=== PATIENT | female | born 1960 | race Caucasian/White ===

== ENCOUNTER → 2016-05-26 | Outpatient (CLI) | payer OTHER ==
[~2016-05-26] MED LIST: IBUP80TA PO; LEVO50TA5 PO
--- NOTE | 2016-05-26 14:52 | REPMRS ---
Patient History The patient states she had a clinical breast exam in 04/2016. Patient is postmenopausal. Patient had tested negative for BRCA1 and negative for BRCA2. Family history of colorectal cancer in maternal grandfather at age 50 or over, breast cancer in sister at age 58, breast cancer in mother at age 50 or over, breast cancer in 2 maternal aunts at age 50 or over, breast cancer in maternal aunt at age 42, colorectal cancer in 2 paternal uncles at age 50 or over, and colorectal cancer in 3 maternal uncles at age 50 or over. Took hormonal contraceptives for 6 years. Digital Woman Screen Mammo: May 26, 2016 - Exam #: [id number] Bilateral CC and MLO view(s) were taken. Technologist: Shweta Boland, Technologist Prior study comparison: March 10, 2015, digital bilateral screening mammo, performed at [facility]. February 25, 2014, bilateral bilat screen digital mammo, performed at [facility] ([facility]). February 15, 2013, bilateral bilat screen digital mammo, performed at [facility] ([facility]). FINDINGS: There are scattered fibroglandular densities. There is a moderate amount of residual fibroglandular tissue which is fairly symmetric. There is no interval development of dominant mass, architectural distortion, or clustered microcalcification typical of malignancy. There has been no change in the appearance of the mammogram from the prior studies. ASSESSMENT: BI-RADS/ACR category 1 mammogram. Negative. Recommendation Routine screening mammogram of both breasts in 1 year (for women over age 40). This mammogram was interpreted with the aid of an FDA-approved computer-aided dectection system. Electronically Signed By: Rigoberto Mahajan MD 05/26/16 [id number]
--- NOTE | 2016-05-30 10:32 | DEXA ---
AP SPINE L1 - L4 1.142 -0.4 0.3 LT FEMUR TOTAL 0.833 -1.4 -0.8 RT FEMUR TOTAL 0.868 -1.1 -0.5 TOTAL BODY TOTAL OTHER DUAL FEMUR FRAX* ASSESSMENT Risk factors: History of adult fracture. 10 year probability of fracture Major osteoporotic fracture 13.7 % Hip fracture 1.5 % COMMENTS: Normal bone densitometry of the spine. There is low bone density of the hips. The density of the spine has decreased 15.0% since the initial exam on 2009. The spine density is increased 1.9% since the most recent exam on 02/25/2014. The density of the left hip has decreased 11.0% since the initial exam on 2009. The density of the left hip has decreased 1.4% since the most recent exam on 07/2013. The density of the right hip has decreased 8.6% since the initial exam on 2009. The density of the right hip has increased 3.8% since the most recent exam on . FOLLOW-UP: Recommendation for the next bone density exam: 2 years. MARIIA
== END ==
LOC: M WHC 13:37
PROVIDERS: ATTEND Obstetrics & Gynecology
DX: Z12.31 Encounter for screening mammogram for malignant neoplasm of breast (principal); M81.0 Age-related osteoporosis without current pathological fracture

== ENCOUNTER → 2016-07-26 | Outpatient (REF) | payer OTHER ==
[2016-07-26 12:39] LABS: ALBUMIN 3.9 GM/DL (3.2-5.2); ALBUMIN/GLOBULIN RATIO 1.11 (1.00-1.93); ALKALINE PHOSPHATASE 70 U/L (45-117); ALT/SGPT 19 U/L (12-78); ANION GAP 5 MEQ/L (8-16); AST/SGOT 18 U/L (15-37); BILIRUBIN,TOTAL 0.6 MG/DL (0.2-1.0); BLOOD UREA NITROGEN 14 MG/DL (7-18); CALCIUM LEVEL 9.2 MG/DL (8.5-10.1); CARBON DIOXIDE LEVEL 31 MEQ/L (21-32); CHLORIDE LEVEL 106 MEQ/L (98-107); CHOLESTEROL LEVEL 229 MG/DL (<200); CREATININE FOR GFR 0.81 MG/DL (0.55-1.02); GLOMERULAR FILTRATION RATE > 60.0 (>51); GLUCOSE, FASTING 90 MG/DL (70-105); POTASSIUM SERUM 4.7 MEQ/L (3.5-5.1); SODIUM LEVEL 142 MEQ/L (136-145); TOTAL PROTEIN 7.4 GM/DL (6.4-8.2); TRIGLYCERIDES LEVEL 71 MG/DL (<150)
[2016-07-26 13:11] LABS: MEAN CORPUSCULAR HGB CONC 32.6 g/dl (32.0-36.5); MEAN CORPUSCULAR VOLUME 95.2 fl (80.0-96.0); RED CELL DISTRIBUTION WIDTH 12.9 % (11.5-14.5); WHITE BLOOD COUNT 5.5 K/mm3 (4.0-10.0)
[2016-07-26 15:51] LABS: FREE T4 0.92 NG/DL (0.76-1.46)
== END ==
LOC: M SFHCLERA 07:44
PROVIDERS: ATTEND Physician Assistant
DX: Z12.4 Encounter for screening for malignant neoplasm of cervix (principal)

== ENCOUNTER → 2016-10-31 | Outpatient (REF) | payer OTHER | LOC: M SFHCLERA 11:18 | PROVIDERS: ATTEND Family Medicine | DX: R35.0 Frequency of micturition (principal) ==

== ENCOUNTER → 2017-06-27 | Outpatient (CLI) | payer OTHER | LOC: M WHC 12:15 | DX: Z12.31 Encounter for screening mammogram for malignant neoplasm of breast (principal); Z80.3 Family history of malignant neoplasm of breast; Z80.0 Family history of malignant neoplasm of digestive organs | CPT/HCPCS: 77067 ==

== ENCOUNTER → 2018-03-23 | Outpatient (REF) | payer OTHER ==
[2018-03-26 15:17] LABS: FREE T4 0.95 NG/DL (0.76-1.46)
== END ==
LOC: M SFHCCLAY 11:53
DX: E03.9 Hypothyroidism, unspecified (principal)
CPT/HCPCS: 84443

== ENCOUNTER → 2018-07-05 | Outpatient (CLI) | payer OTHER ==
--- NOTE | 2018-07-05 09:13 | REPMRS ---
Patient History The patient states she had a clinical breast exam in 04/2018. Patient is postmenopausal. Patient had tested negative for BRCA1 and negative for BRCA2. Family history of breast cancer at age 50 or over in mother, colorectal cancer at age 50 or over in maternal grandfather, breast cancer at age 50 or over in maternal aunt, colorectal cancer at age 50 or over in paternal uncle, colorectal cancer at age 50 or over in paternal uncle, colorectal cancer at age 50 or over in maternal uncle, colorectal cancer at age 50 or over in maternal uncle, colorectal cancer at age 50 or over in maternal uncle, breast cancer at age 58 in sister, breast cancer at age 50 or over in maternal aunt, breast cancer at age 42 in maternal aunt. Took hormonal contraceptives for 6 years. Digital Woman Screen Mammo: July 05, 2018 - Exam #: [id number] Bilateral CC and MLO view(s) were taken. Technologist: Carmen Viera, Technologist Prior study comparison: June 27, 2017, digital woman screen mammo performed at [facility]. May 26, 2016, digital woman screen mammo performed at [facility]. FINDINGS: The breast tissue is heterogeneously dense. This may lower the sensitivity of mammography. There has been no change in the appearance of the mammogram from the prior studies. There is a moderate amount of residual fibroglandular tissue which is fairly symmetric. There is no interval development of dominant mass, architectural distortion, or clustered microcalcification typical of malignancy. Scattered lymph nodes are seen in the axillae. 3-D tomosynthesis shows no additional findings. No significant changes when compared with prior studies. Assessment: BI-RADS/ACR category 2 mammogram. Benign Findings. Recommendation Routine screening mammogram in 1 year (for women over age 40). This mammogram was interpreted with the aid of an FDA-approved computer-aided dectection system. A. Negative x-ray reports should not delay biopsy if a dominant or clinically suspicious mass is present. B. Four to eight percent of cancers are not identified by mammography. C. Adenosis and dense breast may obscure an underlying neoplasm. She has a Tyrer-Cuzick score of 20.8%. For patients with lifetime risk of 20-25% or greater, Breast MRI for additional screening is recommended. Electronically Signed By: Andrea Fowler MD 07/05/18 0916
== END ==
LOC: M WHC 06:37
PROVIDERS: ATTEND Obstetrics & Gynecology
DX: Z12.31 Encounter for screening mammogram for malignant neoplasm of breast (principal); Z80.3 Family history of malignant neoplasm of breast; Z80.0 Family history of malignant neoplasm of digestive organs

== ENCOUNTER → 2019-01-24 | Outpatient (REF) | payer OTHER ==
[2019-01-24 11:34] LABS: BASO # 0.1 10^3/uL (0.0-0.2); BASO % 2.3 % (0.0-1.0); EOS # 0.2 10^3/uL (0.0-0.5); EOS % 3.6 % (0.0-3.0); HEMATOCRIT 39.9 % (36.0-47.0); HEMOGLOBIN 12.7 g/dl (12.0-15.5); LYMPH # 1.8 10^3/uL (1.5-5.0); MEAN CORPUSCULAR HEMOGLOBIN 31.1 pg (27.0-33.0); MEAN CORPUSCULAR HGB CONC 31.8 g/dl (32.0-36.5); MEAN CORPUSCULAR VOLUME 97.6 fl (80.0-96.0); MONO # 0.6 10^3/uL (0.0-0.8); NEUTROPHILS # 2.5 10^3/uL (1.5-8.5); NEUTROPHILS % 47.9 % (36.0-66.0); PLATELET COUNT, AUTOMATED 293 10^3/uL (150-450); RED BLOOD COUNT 4.09 10^6/uL (4.00-5.40); WHITE BLOOD COUNT 5.3 10^3/uL (4.0-10.0)
[2019-01-24 11:48] LABS: FREE T4 0.95 NG/DL (0.76-1.46); THYROID STIMULATING HORMONE 3.08 uIU/ML (0.358-3.740)
== END ==
LOC: M SFHCCLAY 07:08
PROVIDERS: ATTEND Family Medicine
DX: E03.9 Hypothyroidism, unspecified (principal); R53.83 Other fatigue

== ENCOUNTER → 2019-03-19 | Outpatient (REF) | payer OTHER ==
[2019-03-19 12:52] LABS: CHOLESTEROL RISK RATIO 3.328 (<5)
== END ==
LOC: M SFHCCLAY 08:31
PROVIDERS: ATTEND Family Medicine
DX: Z00.00 Encounter for general adult medical examination without abnormal findings (principal); Z13.220 Encounter for screening for lipoid disorders; Z13.1 Encounter for screening for diabetes mellitus

== ENCOUNTER → 2019-12-13 | Outpatient (REF) | payer OTHER ==
[2019-12-13 13:36] LABS: FREE T4 0.99 NG/DL (0.76-1.46); THYROID STIMULATING HORMONE 1.19 uIU/ML (0.358-3.740)
== END ==
LOC: M LABDRAWC 12:06
PROVIDERS: ATTEND Family Medicine
DX: E03.9 Hypothyroidism, unspecified (principal)

== ENCOUNTER → 2020-01-03 | Outpatient (CLI) | payer OTHER ==
--- NOTE | 2020-01-03 09:56 | REPMRS ---
Patient History The patient states she had a clinical breast exam in 05/2019. Patient had tested negative for BRCA1 and negative for BRCA2. Family history of breast cancer at age 50 or over in mother, colorectal cancer at age 50 or over in maternal grandfather, breast cancer at age 50 or over in maternal aunt, colorectal cancer at age 50 or over in paternal uncle, colorectal cancer at age 50 or over in paternal uncle, colorectal cancer at age 50 or over in maternal uncle, colorectal cancer at age 50 or over in maternal uncle, colorectal cancer at age 50 or over in maternal uncle, breast cancer at age 58 in sister, breast cancer at age 50 or over in maternal aunt, breast cancer at age 42 in maternal aunt. Took hormonal contraceptives for 6 years. 3D TOMOSYNTHESIS WAS PERFORMED. [facility] lifetime risk for breast cancer is 19.7%. ORIANA Cool. Digital Woman Screen Mammo: January 03, 2020 - Exam #: [id number] Bilateral CC and MLO view(s) were taken. Technologist: Shweta Boland, Technologist Prior study comparison: July 05, 2018, bilateral digital woman screen mammo performed at [facility]. June 27, 2017, digital woman screen mammo performed at [facility] FINDINGS: The breast tissue is heterogeneously dense. This may lower the sensitivity of mammography. There has been no change in the appearance of the mammogram from the prior studies. There is a moderate amount of residual fibroglandular tissue which is fairly symmetric. There is no interval development of dominant mass, areas of architectural distortion, or clustered microcalcification typical of malignancy. Assessment: BI-RADS/ACR category 1 mammogram. Negative Mammogram. Recommendation Routine screening mammogram in 1 year (for women over age 40). This mammogram was interpreted with the aid of an FDA-approved computer-aided dectection system. Electronically Signed By: Boston Garvey MD 01/03/20 0956
--- NOTE | 2020-01-16 15:45 | DEXA ---
AP SPINE L1 - L4 1.120 -0.6 0.6 LT FEMUR TOTAL 0.871 -1.1 -0.2 LT NECK 0.812 -1.6 -0.4 RT FEMUR TOTAL 0.886 -1.0 0.0 RT NECK 0.821 -1.6 -0.3 TOTAL BODY TOTAL OTHER COMMENTS: Normal bone densitometry of the spine. There is low bone density of the hips. The density of the spine has decreased 16.7% since the initial exam on 01/01/2010. The decreased 1.9% since the most recent exam on 05/26/2016. The density of the left hip has decreased 6.9% since the initial exam on 01/01/2010. The density of the left hip has increased 4.6% since the most recent exam on 05/26/2016. The density of the right hip has decreased 6.7% since the initial exam on 01/01/2010. The density of the right hip has increased 2.1% since the most recent exam on 05/26/2016. FOLLOW-UP: Recommendation for the next bone density exam: 2 years. KISHAND
== END ==
LOC: M WHC 08:31
PROVIDERS: ATTEND Obstetrics & Gynecology
DX: Z12.31 Encounter for screening mammogram for malignant neoplasm of breast (principal); Z13.820 Encounter for screening for osteoporosis; M85.851 Other specified disorders of bone density and structure, right thigh; M85.852 Other specified disorders of bone density and structure, left thigh; Z80.3 Family history of malignant neoplasm of breast; Z92.0 Personal history of contraception

== ENCOUNTER → 2020-06-27 | Outpatient (CLI) | payer OTHER ==
[~2020-06-27] MED LIST changes: +LEVO75TA4
== END ==
LOC: M LABSMTC 08:52
PROVIDERS: ATTEND Anesthesiology
DX: Z01.812 Encounter for preprocedural laboratory examination (principal); Z20.822 Contact with and (suspected) exposure to COVID-19

== ENCOUNTER 2020-07-02 08:40 | Day surgery (SDC) | payer OTHER ==
[~2020-07-02] VITALS: Ht 162.6 cm; Wt 76.2 kg
[~2020-07-02 08:40] MED LIST changes: +NS 1,000 ML IV ONE
[2020-07-02] MEDS ORDERED: LIDOCAINE 2% 100MG/5ML SDV (FOR ANES.) As Ordered ONE (10:02)
[2020-07-02] MEDS ORDERED: propofoL 200 MG/20 ML VIAL As Ordered ONE (10:02)
--- NOTE | 2020-07-02 10:25 | ROOR ---
Patient Name: Amelia Koch Procedure Date: 07/02/2020 9:54 AM Date of : 1960 Age: 59 Room: [facility] Gender: Female Note Status: Finalized Procedure: Colonoscopy Indications: Colon cancer screening in patient at increased risk: Family history of colorectal cancer in multiple 2nd degree relatives, Last colonoscopy: April 2015 Providers: Shantanu Faustin MD Referring MD: Myra PRESTON DO Requesting Provider: Medicines: Monitored Anesthesia Care Complications: No immediate complications. Procedure: Pre-Anesthesia Assessment: - Prior to the procedure, a History and Physical was performed, and patient medications and allergies were reviewed. The patient is competent. The risks and benefits of the procedure and the sedation options and risks were discussed with the patient. All questions were answered and informed consent was obtained. Patient identification and proposed procedure were verified by the physician, the nurse and the anesthesiologist in the procedure room. Mental Status Examination: alert and oriented. Airway Examination: normal oropharyngeal airway and neck mobility. Prophylactic Antibiotics: The patient does not require prophylactic antibiotics. Prior Anticoagulants: The patient has taken no previous anticoagulant or antiplatelet agents. ASA Grade Assessment: II - A patient with mild systemic disease. After reviewing the risks and benefits, the patient was deemed in satisfactory condition to undergo the procedure. The anesthesia plan was to use monitored anesthesia care (MAC). Immediately prior to administration of medications, the patient was re-assessed for adequacy to receive sedatives. The heart rate, respiratory rate, oxygen saturations, blood pressure, adequacy of pulmonary ventilation, and response to care were monitored throughout the procedure. The physical status of the patient was re-assessed after the procedure. The Colonoscope was introduced through the anus and advanced to the cecum, identified by appendiceal orifice and ileocecal valve. The colonoscopy was performed without difficulty. The patient tolerated the procedure well. The quality of the bowel preparation was excellent. Findings: The perianal and digital rectal examinations were normal. The colon (entire examined portion) appeared normal. Impression: - The entire examined colon is normal. - No specimens collected. Recommendation: - Discharge patient to home. - Resume previous diet. - Continue present medications. - Repeat colonoscopy in 5 years for screening purposes. Procedure Code(s): --- Professional --- 39673, Colonoscopy, flexible; diagnostic, including collection of specimen(s) by brushing or washing, when performed (separate procedure) Diagnosis Code(s): --- Professional --- Z80.0, Family history of malignant neoplasm of digestive organs CPT copyright 2019 [employer] [employer]. All rights reserved. The codes documented in this report are preliminary and upon top polisher review may be revised to meet current compliance requirements. Shantanu Faustin MD Shantanu Faustin MD 07/02/2020 10:25:21 AM Electronically signed by Shantanu Faustin MD Number of Addenda: 0 Note Initiated On: 07/02/2020 9:54 AM Estimated Blood Loss: Estimated blood loss: none.
[2020-07-02 10:49] VITALS: BP 103/62
== END 2020-07-02 10:52 | disposition home or self-care (01) ==
LOC: M OPP 08:40
PROVIDERS: ATTEND Surgery
DX: Z12.11 Encounter for screening for malignant neoplasm of colon (principal); Z80.0 Family history of malignant neoplasm of digestive organs; E03.9 Hypothyroidism, unspecified; Z79.899 Other long term (current) drug therapy

== ENCOUNTER → 2021-02-04 | Outpatient (REF) | payer OTHER ==
[~2021-02-04] MED LIST changes: -NS 1,000 ML IV ONE
[2021-02-05 11:45] LABS: APPEARANCE, URINE CLEAR (CLEAR); BACTERIA, URINE AUTO NEGATIVE (NEGATIVE); BILIRUBIN, URINE AUTO NEGATIVE (NEGATIVE); BLOOD, URINE BLOOD 1+ (NEGATIVE); COLOR, URINE STRAW (YELLOW); GLUCOSE, URINE (UA) AUTO NEGATIVE (NEGATIVE); KETONE, URINE AUTO NEGATIVE (NEGATIVE); LEUKOCYTE ESTERASE, URINE AUTO TRACE (NEGATIVE); NITRITE, URINE AUTO NEGATIVE (NEGATIVE); PROTEIN, URINE AUTO NEGATIVE (NEGATIVE); RBC, URINE AUTO 1 /HPF (0-3); SPECIFIC GRAVITY URINE AUTO 1.004 (1.002-1.035); SQUAMOUS EPITHELIAL CELL UR AU 0 /HPF (0-6); UROBILINOGEN, URINE AUTO 0.2 mg/dL (0.0-2.0); WBC, URINE AUTO 1 /HPF (0-3)
== END ==
LOC: M SFHCCLAY 14:46
PROVIDERS: ATTEND Family Medicine
DX: R35.0 Frequency of micturition (principal)

== ENCOUNTER → 2021-02-10 | Outpatient (CLI) | payer OTHER ==
--- NOTE | 2021-02-10 16:46 | REPMRS ---
Patient History The patient states she had a clinical breast exam in June 2020. Patient had tested negative for BRCA1 and negative for BRCA2. Family history of breast cancer at age 50 or over in mother, colorectal cancer at age 50 or over in maternal grandfather, breast cancer at age 50 or over in maternal aunt, colorectal cancer at age 50 or over in paternal uncle, colorectal cancer at age 50 or over in paternal uncle, colorectal cancer at age 50 or over in maternal uncle, colorectal cancer at age 50 or over in maternal uncle, colorectal cancer at age 50 or over in maternal uncle, breast cancer at age 58 in sister, breast cancer at age 50 or over in maternal aunt, breast cancer at age 42 in maternal aunt. Took hormonal contraceptives for 6 years. Patient states no breast complaints today. Patient has signed MRS History Sheet. Digital Woman Screen Mammo: February 10, 2021 - Exam #: [id number] Bilateral CC and MLO view(s) were taken. Technologist: Kelsey Aj, Technologist Prior study comparison: January 03, 2020, bilateral digital woman screen mammo performed at [facility]. July 05, 2018, bilateral digital woman screen mammo performed at [facility]. FINDINGS: There are scattered fibroglandular densities. Screening. Digital screening (2D) mammography was performed bilaterally in the CC and MLO projections. Additionally, breast tomosynthesis (3D mammography) was performed bilaterally in the CC and MLO projections. Todays exam was compared to the prior exam/exams. By history, the patient has no complaints of a palpable breast abnormality or other significant breast complaints. The breasts are unchanged in size and shape. There are no nataly-soft tissue densities or spiculated masses. There is no internal architectural distortion. There are no suspicious nataly-calcific clusters. Skin thickening or nipple retraction is not present. IMPRESSION: BI-RADS Category 2- Benign Findings. There is no evidence of malignant alteration of the breasts. Followup examination recommended in one year. The Volpara volumetric breast density category is B, there are scattered areas of fibroglandular densities. This mammogram was read with the assistance of [employer],an FDA approved computer aided detection system for mammography. The lifetime Tyrer-Cuzick score is 19.1 % Negative x-ray reports should not delay surgical consultation if a dominant or clinically suspicious mass is present. Not all breast cancers can be identified by mammography. Therefore, we recommend that you continue to perform regular breast self-examination and physical examination and then promptly contact your physician of any concerns or changes. Adenosis and dense breasts may obscure an underlying neoplasm. Assessment: BI-RADS/ACR category 2 mammogram. Benign Findings. Recommendation Routine screening mammogram of both breasts in 1 year. Electronically Signed By: Venkatesh De Leon DO 02/10/21 [id number]
== END ==
LOC: M WHC 16:12
PROVIDERS: ATTEND Obstetrics & Gynecology
DX: Z12.31 Encounter for screening mammogram for malignant neoplasm of breast (principal); Z80.3 Family history of malignant neoplasm of breast; Z92.0 Personal history of contraception

== ENCOUNTER → 2021-02-19 | Outpatient (REF) | payer OTHER ==
[2021-02-19 16:59] LABS: BLOOD UREA NITROGEN 12 MG/DL (7-18); CALCIUM LEVEL 9.3 MG/DL (8.8-10.2); CARBON DIOXIDE LEVEL 31 MEQ/L (21-32); CHLORIDE LEVEL 108 MEQ/L (98-107); CHOLESTEROL LEVEL 224 MG/DL (<200); CREATININE FOR GFR 0.96 MG/DL (0.55-1.30); FREE T4 1.36 NG/DL (0.76-1.46); GLOMERULAR FILTRATION RATE > 60.0 (>45); GLUCOSE, FASTING 90 MG/DL (70-100); HDL CHOLESTEROL 80 MG/DL (>40); LDL CHOLESTEROL 128 MG/DL (<100); NON-HDL-C 144 MG/DL; POTASSIUM SERUM 4.5 MEQ/L (3.5-5.1); SODIUM LEVEL 140 MEQ/L (136-145); TRIGLYCERIDES LEVEL 82 MG/DL (<150)
== END ==
LOC: M SFHCCLAY 11:56
PROVIDERS: ATTEND Family Medicine
DX: Z00.00 Encounter for general adult medical examination without abnormal findings (principal); E03.9 Hypothyroidism, unspecified; Z13.220 Encounter for screening for lipoid disorders; Z13.1 Encounter for screening for diabetes mellitus

== ENCOUNTER → 2022-03-25 | Outpatient (REF) | payer OTHER ==
[2022-03-25 12:35] LABS: HEMATOCRIT 41.4 % (36.0-47.0); HEMOGLOBIN 13.1 g/dl (12.0-15.5); MEAN CORPUSCULAR HGB CONC 31.6 g/dl (32.0-36.5); MEAN CORPUSCULAR VOLUME 98.1 fl (80.0-96.0); PLATELET COUNT, AUTOMATED 349 10^3/uL (150-450); RED BLOOD COUNT 4.22 10^6/uL (4.00-5.40); WHITE BLOOD COUNT 6.4 10^3/uL (4.0-10.0)
[2022-03-25 14:05] LABS: THYROID STIMULATING HORMONE 1.262 uIU/ML (0.55-4.78)
[2022-03-25 14:07] LABS: ALBUMIN 3.9 G/DL (3.2-5.2); ALKALINE PHOSPHATASE 73 U/L (46-116); ALT/SGPT 31 U/L (7.0-40); AST/SGOT 23 U/L (<34); BILIRUBIN,TOTAL 0.7 MG/DL (0.3-1.2); BLOOD UREA NITROGEN 12 MG/DL (9-23); CARBON DIOXIDE LEVEL 29 MMOL/L (20-31); CHLORIDE LEVEL 105 MMOL/L (98-107); CHOLESTEROL LEVEL 180 MG/DL (<200); CHOLESTEROL RISK RATIO 2.75 (<5); CREATININE FOR GFR 0.92 MG/DL (0.55-1.30); GLOMERULAR FILTRATION RATE > 60.0 (>45); GLUCOSE, FASTING 84 MG/DL (74-106); HDL CHOLESTEROL 65.4 MG/DL (>40); LDL CHOLESTEROL 101.4 MG/DL (<100); NON-HDL-C 115 MG/DL; POTASSIUM SERUM 5.3 MMOL/L (3.5-5.1); SODIUM LEVEL 141 MMOL/L (136-145); TOTAL PROTEIN 7.1 G/DL (5.7-8.2); TRIGLYCERIDES LEVEL 66 MG/DL (<150)
== END ==
LOC: M SFHCCLAY 08:54
PROVIDERS: ATTEND Nurse Practitioner Family
DX: E03.9 Hypothyroidism, unspecified (principal); Z13.220 Encounter for screening for lipoid disorders

== ENCOUNTER → 2023-03-27 | Outpatient (REF) | payer BC ==
[2023-03-27 16:35] LABS: BLOOD UREA NITROGEN 10 MG/DL (9-23); CALCIUM LEVEL 8.8 MG/DL (8.3-10.6); CARBON DIOXIDE LEVEL 28 MMOL/L (20-31); CHLORIDE LEVEL 105 MMOL/L (98-107); CHOLESTEROL LEVEL 202 MG/DL (<200); CHOLESTEROL RISK RATIO 3.25 (<5); CREATININE FOR GFR 0.89 MG/DL (0.55-1.30); FREE T4 1.29 NG/DL (0.89-1.76); GLOMERULAR FILTRATION RATE > 60.0 (>45); GLUCOSE, FASTING 86 MG/DL (74-106); POTASSIUM SERUM 4.5 MMOL/L (3.5-5.1); SODIUM LEVEL 138 MMOL/L (136-145); THYROID STIMULATING HORMONE 0.755 uIU/ML (0.55-4.78); TRIGLYCERIDES LEVEL 95 MG/DL (<150)
== END ==
LOC: M SFHCCLAY 08:46
PROVIDERS: ATTEND Nurse Practitioner Family
DX: Z00.00 Encounter for general adult medical examination without abnormal findings (principal); E03.9 Hypothyroidism, unspecified

== ENCOUNTER → 2024-04-05 | Outpatient (REF) | payer BC ==
[2024-04-05 18:15] LABS: ALBUMIN 3.9 G/DL (3.2-5.2); ALKALINE PHOSPHATASE 65 U/L (35-104); ALT/SGPT 18 U/L (7.0-40); AST/SGOT 14 U/L (<34); BILIRUBIN,TOTAL 0.7 MG/DL (0.3-1.2); BLOOD UREA NITROGEN 11 MG/DL (9-23); CARBON DIOXIDE LEVEL 29 MMOL/L (20-31); CHLORIDE LEVEL 103 MMOL/L (98-107); CHOLESTEROL LEVEL 203 MG/DL (<200); CHOLESTEROL RISK RATIO 3.41 (<5); CREATININE FOR GFR 0.87 MG/DL (0.55-1.30); GLOMERULAR FILTRATION RATE > 60.0 (>45); GLUCOSE, FASTING 83 MG/DL (74-106); HDL CHOLESTEROL 59.5 MG/DL (>40); LDL CHOLESTEROL 115.5 MG/DL (<100); NON-HDL-C 143.5 MG/DL; POTASSIUM SERUM 4.3 MMOL/L (3.5-5.1); SODIUM LEVEL 140 MMOL/L (136-145); TOTAL PROTEIN 7.8 G/DL (5.7-8.2); TRIGLYCERIDES LEVEL 140 MG/DL (<150)
[2024-04-05 19:27] LABS: HEMOGLOBIN A1c 5.6 % (4.0-6.0)
== END ==
LOC: M SFHCCLAY 13:44
PROVIDERS: ATTEND Nurse Practitioner Family
DX: Z00.00 Encounter for general adult medical examination without abnormal findings (principal); E03.9 Hypothyroidism, unspecified

== ENCOUNTER → 2025-04-07 | Outpatient (REF) | payer BC ==
[2025-04-07 13:24] LABS: ALT/SGPT 25.0 U/L (7.0-40); AST/SGOT 21.0 U/L (<34); CALCIUM LEVEL 9.1 MG/DL (8.3-10.6); CARBON DIOXIDE LEVEL 29.0 MMOL/L (20-31); CHLORIDE LEVEL 103.0 MMOL/L (98-107); CHOLESTEROL LEVEL 215.0 MG/DL (<200); CHOLESTEROL RISK RATIO 3.12 (<5); CREATININE FOR GFR 0.87 MG/DL (0.55-1.30); GLOMERULAR FILTRATION RATE 73.9 (>45); LDL CHOLESTEROL 124.6 MG/DL (<100); NON-HDL-C 146.2 MG/DL; POTASSIUM SERUM 4.5 MMOL/L (3.5-5.1); SODIUM LEVEL 140.0 MMOL/L (136-145); TRIGLYCERIDES LEVEL 108.0 MG/DL (<150)
[2025-04-07 13:26] LABS: FREE T4 1.49 NG/DL (0.89-1.76)
[2025-04-07 14:36] LABS: ESTIMATED AVERAGE GLUCOSE 114.0 MG/DL (60-110)
== END ==
LOC: M SFHCCLAY 08:33
PROVIDERS: ATTEND Nurse Practitioner Family
DX: Z00.00 Encounter for general adult medical examination without abnormal findings (principal); E03.9 Hypothyroidism, unspecified